=== PATIENT | male | born 1965 | race Caucasian/White ===

== ENCOUNTER 2019-09-27 10:19 | Emergency (ER) | payer SELFPAY ==
--- NOTE | 2019-09-27 10:55 | ER Document Report ---
ED Medical Screen (RME) - General Chief Complaint: Numbness of Arm Stated Complaint: NUMBNESS OF ARM Time Seen by Provider: 09/27/19 10:44 Primary Care Provider: REGINA BRYANT [Primary Care Provider] - Follow up as needed Mode of Arrival: Ambulatory Information source: Patient Notes: 54-year-old male presents emergency department with complaints of left arm pain and cold hand for the past couple weeks. Reports it started with both arms hurting and now only the left arm hurts. He reports is from the shoulder down to his hand. Denies trauma. Reports he is short of breath due to the smoking. Reports nothing new. Denies chest pain. Patient is right-handed. 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 Patient reports he smokes drinks 3-4 beers a night denies recent drug use. Reports history of cocaine use. Reports he does not go to a doctor. When he first started hurting he did go to a chiropractor and they mentioned high blood pressure and did some manipulation but it did not fix his arm pain. Respiratory rate even unlabored, left radial pulse strong. No obvious injury to the arm. Some tenderness to the left shoulder. I have greeted and performed a rapid initial assessment of this patient. A comprehensive ED assessment and evaluation of the patient, analysis of test results and completion of the medical decision making process will be conducted by additional ED providers. - Related Data Allergies/Adverse Reactions: No Known Allergies Allergy (Unverified 09/27/19 10:43) Physical Exam - Vital signs Vitals: Temp Pulse Resp BP Pulse Ox 97.4 F 76 18 169/104 H 98 09/27/19 10:34 09/27/19 10:34 09/27/19 10:34 09/27/19 10:34 09/27/19 10:34 Course - Vital Signs Vital signs: Temp Pulse Resp BP Pulse Ox 97.4 F 76 18 169/104 H 98 09/27/19 10:34 09/27/19 10:34 09/27/19 10:34 09/27/19 10:34 09/27/19 10:34 Doctor's Discharge - Discharge Referrals: REGINA BRYANT [Primary Care Provider] - Follow up as needed
[2019-09-27 11:33] LABS: ABSOLUTE BASOPHILS # (AUTO) 0.1 10^3/uL (0.0-0.2); ABSOLUTE EOSINOPHILS # (AUTO) 0.1 10^3/uL (0.0-0.6); ABSOLUTE LYMPHOCYTES (AUTO) 2.1 10^3/uL (0.5-4.7); ABSOLUTE MONOCYTES (AUTO) 0.6 10^3/uL (0.1-1.4); ABSOLUTE NEUT (AUTO) 3.3 10^3/uL (1.7-8.2); BASOPHILS % (AUTO) 1.1 % (0-2); EOSINOPHILS % (AUTO) 1.1 % (0-6); HEMATOCRIT 49.8 % (37.9-51.0); HEMOGLOBIN 17.3 g/dL (13.5-17.0); LYMPHOCYTES % (AUTO) 33.8 % (13-45); MEAN CORPUSCULAR HGB CONC 34.7 g/dL (32.0-36.0); MEAN CORPUSCULAR VOLUME 95 fl (80-97); MONOCYTES % (AUTO) 9.6 % (3-13); PLATELET COUNT 176 10^3/uL (150-450); RED BLOOD COUNT 5.23 10^6/uL (4.35-5.55); RED CELL DISTRIBUTION WIDTH 13.2 % (11.5-14.0); SEGMENTED NEUTROPHILS % (AUTO) 54.4 % (42-78); TOTAL CELLS COUNTED % (AUTO) 100 %; WHITE BLOOD COUNT 6.2 10^3/uL (4.0-10.5)
--- NOTE | 2019-09-27 11:49 | RADIOLOGY REPORT (SQ) ---
EXAM DESCRIPTION: CHEST 2 VIEWS COMPLETED DATE/TIME: 09/27/2019 11:42 am REASON FOR STUDY: left arm pain COMPARISON: None. TECHNIQUE: Frontal and lateral radiographic views of the chest acquired. NUMBER OF VIEWS: Two view. LIMITATIONS: None. FINDINGS: LUNGS AND PLEURA: No opacities, masses or pneumothorax. No pleural effusion. MEDIASTINUM AND HILAR STRUCTURES: No masses or contour abnormalities. HEART AND VASCULAR STRUCTURES: Heart normal size. No evidence for failure. BONES: No acute findings. HARDWARE: None in the chest. OTHER: No other significant finding. IMPRESSION: NO SIGNIFICANT RADIOGRAPHIC FINDING IN THE CHEST. TECHNICAL DOCUMENTATION: JOB ID: [id number] [employer]- All Rights Reserved Reading location - IP/workstation name: [email or web address]
[2019-09-27 12:07] LABS: ALKALINE PHOSPHATASE 60 U/L (38-126); ANION GAP 6 (5-19); ASPARTATE AMINO TRANSFERASE 40 U/L (17-59); BILIRUBIN,DIRECT 0.4 mg/dL (0.0-0.4); BILIRUBIN,TOTAL 0.5 mg/dL (0.2-1.3); BLOOD UREA NITROGEN 10 mg/dL (7-20); CALCIUM 9.3 mg/dL (8.4-10.2); CARBON DIOXIDE 30 mmol/L (22-30); CHLORIDE 104 mmol/L (98-107); GLUCOSE 94 mg/dL (75-110); POTASSIUM 4.5 mmol/L (3.6-5.0); TOTAL PROTEIN 7.1 g/dL (6.3-8.2)
[2019-09-27 13:21] VITALS: BP 156/94
--- NOTE | 2019-09-27 15:17 | ER Document Report ---
Entered by ZARI PIZARRO SCRIBE 09/27/19 1235 Acting as scribe for:KIRSTEN SORIA MD ED Extremity Problem, Upper - General Chief Complaint: Arm Pain Stated Complaint: NUMBNESS OF ARM Time Seen by Provider: 09/27/19 10:44 Primary Care Provider: REGINA BRYANT [NO LOCAL MD] - Follow up as needed Mode of Arrival: Ambulatory Information source: Patient Notes: This 54-year-old male patient presents to the emergency department today with complaints of left upper extremity pain. Patient states he has had this pain for a couple of weeks. Patient states initially he had a similar pain in his right upper extremity and "overnight it switched to the other arm". Patient states his pain is exacerbated if he has his arm down by his side and is relieved by placing his left upper extremity over his head. Patient that he has noticed that he sometimes wakes up in the middle the night with left hand numbness and tingling. Patient states he does sleep with his wrist hyperextended under his head at night. TRAVEL OUTSIDE OF THE [place] IN LAST 30 DAYS: No - Related Data Allergies/Adverse Reactions: No Known Allergies Allergy (Verified 09/27/19 10:54) Home Medications: ibuprofen Past Medical History - General Information source: Patient - Social History Smoking Status: Current Every Day Smoker Cigarette use (# per day): Yes Chew tobacco use (# tins/day): No Frequency of alcohol use: Social Drug Abuse: None Lives with: Family Family History: Reviewed & Not Pertinent Patient has suicidal ideation: No Patient has homicidal ideation: No Review of Systems - Review of Systems Constitutional: No symptoms reported EENT: No symptoms reported Cardiovascular: No symptoms reported Respiratory: No symptoms reported Gastrointestinal: No symptoms reported Genitourinary: No symptoms reported Male Genitourinary: No symptoms reported Musculoskeletal: See HPI, Joint pain - left shoulder/upper extremity Skin: No symptoms reported Hematologic/Lymphatic: No symptoms reported Neurological/Psychological: No symptoms reported -: Yes All other systems reviewed and negative Physical Exam - Vital signs Vitals: Temp Pulse Resp BP Pulse Ox 97.4 F 76 18 169/104 H 98 09/27/19 10:34 09/27/19 10:34 09/27/19 10:34 09/27/19 10:34 09/27/19 10:34 - Notes Notes: Physical Exam: General: Alert, appears well. HEENT: Normocephalic. Atraumatic. PERRL. Extraocular movements intact. Or opharynx clear. Neck: Supple. Non-tender. Respiratory: No respiratory distress. Clear and equal breath sounds bilaterally. Cardiovascular: Regular rate and rhythm. Brisk capillary refill distally bilaterally. 2+ radial pulses distally bilaterally. Abdominal: Normal Inspection. Non-tender. No distension. Normal Bowel Sounds. Back: There is tenderness to palpation with associated muscle spasm of the left trapezius and left posterior cervical muscles. There is minimal tenderness over the same area on the right. Extremities: Moves all four extremities. Upper extremities: Normal inspection. Normal ROM. Negative Phalen's test, positive Tinel sign. Lower extremities: Normal inspection. No edema. Normal ROM. Neurological: Normal cognition. AAOx4. Normal speech. Psychological: Normal affect. Normal Mood. Skin: Warm. Dry. Normal color. Course - Re-evaluation Re-evalutation: 09/27/19 13:15 The patient's hemoglobin was 17.3, this is most likely due to his 2 pack a day smoking habit. He was advised about the danger of this thick blood increasing his risk for cardiovascular and cerebrovascular disease. He was advised to try to reduce his smoking as much as possible. - Vital Signs Vital signs: Temp Pulse Resp BP Pulse Ox 97.9 F 76 24 H 156/94 H 100 09/27/19 13:26 09/27/19 10:34 09/27/19 13:26 09/27/19 13:01 09/27/19 13:01 - Laboratory Result Diagrams: 09/27/19 11:18 09/27/19 11:18 Laboratory results interpreted by me: 09/27/19 11:18 Hgb 17.3 H - Diagnostic Test Radiology reviewed: Image reviewed, Reports reviewed - Chest x-ray does not show any acute cardiopulmonary process. - EKG Interpretation by Ca EKG shows normal: Sinus rhythm, [place], Intervals, QRS Complexes, ST-T Waves Rate: Normal - 57 Rhythm: NSR Discharge - Discharge Clinical Impression: Carpal tunnel syndrome of left wrist, Trapezius muscle spasm Condition: Stable Disposition: HOME, SELF-CARE Additional Instructions: Carpal Tunnel Syndrome: Your examination suggests carpal tunnel syndrome. This syndrome is due to pressure on a nerve in the wrist. The pressure may be caused by an old injury, hard work using the wrist, work involving repeated motions of the hand, wrist positions that keep pressure on the joint, or arthritis in the wrist. Typical symptoms are tingling, numbness, and pain in the palm, thumb, index and middle fingers, and one side of the ring finger. Often a splint, ice packs, and antiinflammatory medication make the symptoms go away. If the physician feels that your problem is chronic, you will be referred to a specialist for further care. If symptoms do not go away, carpal tunnel syndrome may require surgery. You should call the doctor if pain increases, if you develop difficulty using the thumb or fingers, or if major swelling occurs. Trapezius Muscle Strain: You appear to have a strain and tension in your left trapezius muscle. This is the muscle that starts up in your neck near the skull and extends down to the shoulder. This often occurs with strenuous exertion, or during an injury that suddenly stretches the muscle. Some strains heal within days, others cause problems for months. X-rays cannot show a muscle strain. X-rays are taken only if symptoms suggest that a fracture could be present. Sometimes a sling will help rest the muscle. Muscle relaxers, anti-inflammatory medication, and chiropractic or physical therapy manipulation are all beneficial. High Blood Pressure: When your blood pressure was taken today it was elevated. Pre-hypertension/Hypertension: The patient has been informed that they may have pre-hypertension or Hypertension based on a blood pressure reading in the emergency department. Sometimes, stress or illness causes a temporary elevation of your blood pressure. We suggest that you get your blood pressure measured three more times during the next few days to see if this is more than a temporary abnormality. If your blood pressure is greater than 150/90 on each occasion, you should have treatment. Some simple things you can do to help are: If you have blood pressure medicine but aren't using it regularly, start taking it again. Get some aerobic exercise for at least 20 minutes on a daily basis. (See your doctor before beginning a new exercise program.) Eat a low-fat diet. Lose excess weight. Avoid salty foods and avoid adding salt to any of the foods you eat. Avoid diet pills, decongestants, "energizing" herbs, and other medicines that elevate blood pressure. If left untreated, hypertension greatly enhances your risk for developing heart disease and strokes. Please don't ignore this problem. Get a wrist splint to wear at night when you are sleeping to reduce your carpal tunnel symptoms in your left hand. Try using a sling on your left arm to support the weight of the arm and allow the muscles in your shoulder and neck to relax. Take the muscle relaxers and anti-inflammatory medication as prescribed. Follow-up with your chiropractor in a few days after the muscle relaxers have had time to help. Follow-up with a local orthopedic surgeon for evaluation of your left hand numbness if it continues to be a problem. RETURN TO THE EMERGENCY ROOM IF ANY NEW OR WORSENING SYMPTOMS. Prescriptions: Cyclobenzaprine HCl [Flexeril 5 mg Tablet] 5 mg PO TID PRN #20 tablet PRN Reason: Naproxen [Naprosyn] 500 mg PO BID #20 tablet Referrals: LOCAL,NO [NO LOCAL MD] - Follow up as needed Scribe Attestation: 09/27/19 13:05 I personally performed the services described in the documentation, reviewed and edited the documentation which was dictated to the scribe in my presence, and it accurately records my words and actions. I personally performed the services described in the documentation, reviewed and edited the documentation which was dictated to the scribe in my presence, and it accurately records my words and actions.
--- NOTE | 2019-09-27 15:45 | EKG REPORT ---
SEVERITY:- NORMAL ECG - SINUS RHYTHM : Confirmed by: Jenna Moran MD 27-Sep-2019 15:44:26
== END 2019-09-27 13:34 | disposition home or self-care (01) ==
LOC: ER 10:19
DX: G56.02 Carpal tunnel syndrome, left upper limb (principal); M62.830 Muscle spasm of back; M79.602 Pain in left arm; M25.512 Pain in left shoulder; R20.0 Anesthesia of skin; R20.2 Paresthesia of skin; F17.210 Nicotine dependence, cigarettes, uncomplicated; Z79.1 Long term (current) use of non-steroidal anti-inflammatories (NSAID)
CPT/HCPCS: 36415; 71046; 80053; 84484; 85025; 93005; 93010; 99284

== ENCOUNTER 2020-08-31 10:13 | Emergency (ER) | payer SELFPAY ==
[2020-08-31] MEDS ORDERED: CLINDAMYCIN 600 MG/D5W RTU 600 MG/50 ML RTUPB IV ONE (10:41)
[2020-08-31] MEDS ORDERED: MORPHINE SULFATE 10 MG/ML INJ IV ONE (10:42)
--- NOTE | 2020-08-31 10:43 | ER Document Report ---
ED Medical Screen (RME) - General Chief Complaint: Facial Swelling Stated Complaint: FACIAL SWELLING Time Seen by Provider: 08/31/20 10:37 Mode of Arrival: Ambulatory Information source: Patient Notes: Patient presents complaining of left-sided facial pain with swelling for the past 4 days. Patient denies any fever. Patient states that he took a family members amoxicillin although he had itching and did not take any additional doses. Patient reports pain radiates to the left maxillary area up to his eye. I have greeted and performed a rapid initial assessment of this patient. A comp rehensive ED assessment and evaluation of the patient, analysis of test results and completion of the medical decision making process will be conducted by additional ED providers. TRAVEL OUTSIDE OF THE [place] IN LAST 30 DAYS: No - Related Data Allergies/Adverse Reactions: No Known Allergies Allergy (Verified 09/27/19 10:54) Physical Exam - Vital signs Vitals: Temp Pulse Resp BP Pulse Ox 98.3 F 96 18 142/75 H 99 08/31/20 10:27 08/31/20 10:27 08/31/20 10:27 08/31/20 10:27 08/31/20 10:27 - General General appearance: Alert Notes: Left maxillary facial swelling - HEENT Teeth diagram: 1 - Dental fracture, decay, tenderness, widespread dental decay Course - Vital Signs Vital signs: Temp Pulse Resp BP Pulse Ox 98.3 F 96 18 142/75 H 99 08/31/20 10:27 08/31/20 10:27 08/31/20 10:27 08/31/20 10:27 08/31/20 10:27
--- NOTE | 2020-08-31 11:14 | ER Document Report ---
ED Head/Face/Scalp Injury - General Chief Complaint: Facial Swelling Stated Complaint: FACIAL SWELLING Time Seen by Provider: 08/31/20 10:37 Primary Care Provider: REGINA BRYANT [Primary Care Provider] - Follow up as needed Mode of Arrival: Ambulatory Information source: Patient Notes: ED Medical Screen ([facility]) - General Chief Complaint: Facial Swelling Stated Complaint: FACIAL SWELLING Time Seen by Provider: 08/31/20 10:37 Mode of Arrival: Ambulatory Information source: Patient Notes: Patient presents complaining of left-sided facial pain with swelling for the past 4 days. Patient denies any fever. Patient states that he took a family members amoxicillin although he had itching and did not take any additional doses. Patient reports pain radiates to the left maxillary area up to his eye. MY NOTES 55-year-old male arrives with swelling to his left facial and periorbital gumline for 4 days. He has had a abscess to his premolar for several months now abscessed to the gumline. He denies any trauma to his face and denies any allergies. He has been taking some amoxicillin that was not prescribed to him. He denies any earache or neck pain nuchal rigidity cephalgia. We advised him to follow-up with a dentist after being here in the ER. His sister is witnessed to this as well. She is in the room to his left. Patient is sitting in [facility] in no apparent distress. He is bearded TRAVEL OUTSIDE OF THE [place] IN LAST 30 DAYS: No - HPI Patient complains to provider of: Swelling Injury to: Face, Jaw - Related Data Allergies/Adverse Reactions: No Known Allergies Allergy (Verified 09/27/19 10:54) Past Medical History - General Information source: Patient - Social History Smoking Status: Current Every Day Smoker Cigarette use (# per day): Yes Chew tobacco use (# tins/day): No Smoking Education Provided: Yes Frequency of alcohol use: Occasional Drug Abuse: None Lives with: Family Family History: Reviewed & Not Pertinent Patient has suicidal ideation: No Patient has homicidal ideation: No Review of Systems - Review of Systems Constitutional: No symptoms reported EENT: See HPI, Mouth pain, Dental problem Cardiovascular: No symptoms reported Respiratory: No symptoms reported Gastrointestinal: No symptoms reported Genitourinary: No symptoms reported Male Genitourinary: No symptoms reported Musculoskeletal: No symptoms reported Skin: No symptoms reported Hematologic/Lymphatic: No symptoms reported Neurological/Psychological: No symptoms reported -: Yes All other systems reviewed and negative Physical Exam - Vital signs Vitals: Temp Pulse Resp BP Pulse Ox 98.3 F 96 18 142/75 H 99 08/31/20 10:27 08/31/20 10:27 08/31/20 10:27 08/31/20 10:27 08/31/20 10:27 Interpretation: Normal - General General appearance: Appears well, Alert - HEENT Head: Atraumatic, Other - Normocephalic except for left facial edema around cheek and lower jaw. This is tender to palpation Eyes: Normal Conjunctiva: Normal Cornea: Normal Extraocular movements intact: Yes Eyelashes: Normal Pupils: PERRL Sinus: Maxillary - Tender left maxillary sinus on palpation Nasal: Other - Edema to left perinasal periaural cheek and jaw area with erythema Mouth/Lips: Caries - Patient has fair repair but abscess to his left upper premolar number #13 Mucous membranes: Normal Pharynx: Normal Neck: Normal - Respiratory Respiratory status: No respiratory distress Chest status: Nontender Breath sounds: Normal Chest palpation: Normal - Cardiovascular Rhythm: Regular Heart sounds: Normal auscultation Murmur: No - Abdominal Inspection: Normal Distension: No distension Bowel sounds: Normal Tenderness: Nontender Organomegaly: No organomegaly - Rectal Prostate: Other - Deferred - Genitourinary Scrotum: Other - Deferred - Back Back: Normal, Nontender - Extremities General upper extremity: Normal inspection, Nontender, Normal color, Normal ROM, Normal temperature General lower extremity: Normal inspection, Nontender, Normal color, Normal ROM, Normal temperature, Normal weight bearing. No: [place]'s sign - Neurological Neuro grossly intact: Yes Cognition: Normal Orientation: AAOx4 [place] Coma Scale Eye Opening: Spontaneous [place] Coma Scale Verbal: Oriented [place] Coma Scale Motor: Obeys Commands Elysia Coma Scale Total: 15 Speech: Normal Motor strength normal: LUE, RUE, LLE, RLE Sensory: Normal - Psychological Associated symptoms: Normal affect, Normal mood - Skin Skin Temperature: Warm Skin Moisture: Dry Skin Color: Normal Course - Vital Signs Vital signs: Temp Pulse Resp BP Pulse Ox 97.5 F 84 16 132/84 H 99 08/31/20 13:25 08/31/20 13:25 08/31/20 13:25 08/31/20 13:25 08/31/20 13:25 - Laboratory Results Critical Laboratory Results Reviewed: Yes Attending or Supervising Physician who Reviewed Labs: TAM MELGAR JR - Radiology Results Critical Radiology Results Reviewed: No Critical Results Attending or Supervising Physician who Reviewed Radiology: TAM MELGAR JR Discharge - Discharge Clinical Impression: Dental caries, Facial cellulitis, Cellulitis of face left side Condition: Stable Disposition: HOME, SELF-CARE Instructions: Clindamycin (OM), Toothache (OM) Additional Instructions: Follow-up with dentist this week; return to ER as needed ;take medicines as directed; encourage fluid but avoid ice or cold or hot to your mouth or teeth. Apply moist warm compresses to the left facial cellulitis/do this at least for 10 minutes every other hour while awake. Avoid falling asleep with the moist compress on your face. Prescriptions: Clindamycin HCl [Cleocin 150 mg Capsule] 1 cap PO BID 7 Days #14 cap Dexamethasone [Decadron 4 Mg Tablet] 4 mg PO DAILY 5 Days #5 tablet Forms: Return to Work Referrals: LOCAL,NO [Primary Care Provider] - Follow up as needed
[2020-08-31] MEDS ORDERED: CEFTRIAXONE INJ 1000 MG VIAL IM ONE (11:40)
[2020-08-31] MEDS ORDERED: HYDROCODONE/ACETAMINOPHEN 5-325 MG (6 TAB/ER DISP) PO PRN (11:41)
[2020-08-31] MEDS ORDERED: DEXAMETHASONE 4 MG TABLET PO ONE (11:42)
[2020-08-31] MEDS ORDERED: GENTAMICIN SULFATE INJ 80 MG/2 ML VIAL IM ONE (11:42)
[2020-08-31] MEDS ORDERED: LIDOCAINE 2% VISCOUS SOLN 15 ML UDCUP PO ONE (11:53)
[2020-08-31] MEDS ORDERED: LIDOCAINE 1% INJ-PF (10 MG/ML) 30 ML SDV ONE (13:12)
[2020-08-31 13:41] VITALS: BP 132/84
== END 2020-08-31 13:25 | disposition home or self-care (01) ==
LOC: ER 10:13
DX: L03.211 Cellulitis of face (principal); K02.9 Dental caries, unspecified; R22.0 Localized swelling, mass and lump, head; R51.9 Headache, unspecified; F17.210 Nicotine dependence, cigarettes, uncomplicated
CPT/HCPCS: 99284; 96372; J8540; J1580; J3490; J0696